=== PATIENT | female | born 1965 | race Caucasian/White ===

== ENCOUNTER 2019-10-12 14:54 | Outpatient (REF) | payer BC, SELFPAY ==
--- NOTE | 2019-10-12 13:15 | PAPFT_PTH ---
PATIENT: ARNEL ARAYA LOC: NCN #:[id number] AGE/SX: 54/F ROOM: RE10/12/[address]: Rhonda Pepe : 1965 BED: DIS: 10/12/2019 SPEC #: [id number] RECD: 10/12/19 18:44 STATUS: MAIRA REAbram #: [id number] ELOISA: 10/12/19 13:[address]: Rhonda Pepe DEPT: FORMERLY [facility], [facility] Cytology RECD BY: Radha Roque Tissues: 1 - CX/ENDOCX FOR PAP SMEARS Procedures: PAP THIN PREP/[facility] Screening HPV DNA PROBE Comments: [id number] (CHLAMYDIA/GC)
[2019-10-13 15:01] LABS: Chlamydia Result Negative (Negative)
[2019-10-16 13:51] LABS: GC Result Negative (Negative)
== END 2019-10-12 15:14 ==
LOC: NCHCN 14:54
PROVIDERS: PCP Nurse Practitioner; Visit Provider Nurse Practitioner
DX: Z00.00 Encounter for general adult medical examination without abnormal findings (principal); Z12.4 Encounter for screening for malignant neoplasm of cervix; Z11.51 Encounter for screening for human papillomavirus (HPV); Z11.3 Encounter for screening for infections with a predominantly sexual mode of transmission
CPT/HCPCS: 87491; 87591; 88142; 87624

== ENCOUNTER 2019-11-30 00:57 | Outpatient (CLI) | payer BC, SELFPAY ==
--- NOTE | 2019-11-30 12:28 | DI.MAMMO_ITS ---
EXAM: MAMMO SCREENING CLINICAL HISTORY: SCREENING, Z12.39 TECHNIQUE: Mammograms were interpreted according to the usual protocol including computer analysis w [employer] CAD system, tomosynthesis and C-view imaging. FINDINGS: The breasts are of moderate density with fairly symmetrical distribution of fibroglandular tissue. N o dominant mass or clumped microcalcification is identified in either breast. Current examination is compared with previous examinations including September 2015 and there is increased prominence of a fo david area of asymmetric density with a vaguely nodular appearance projected in the central superior po rtion of right breast on MLO view. Additional mammographic views of this area are requested to inclu de MLO spot compression view of the right breast. IMPRESSION: Additional mammographic views of the right breast requested as described above. Breast ultrasound may be indicated as well depending on the result of the additional mammographic views. Category 0. Br east density, category B. BI-RADS Cat 0 - Assessment Incomplete: Need additional imaging evaluation. Breast Density - Category B - Scattered areas of fibroglandular density
== END 2019-11-30 01:17 ==
PROVIDERS: PCP Nurse Practitioner; Visit Provider Nurse Practitioner
DX: Z12.31 Encounter for screening mammogram for malignant neoplasm of breast (principal); R92.8 Other abnormal and inconclusive findings on diagnostic imaging of breast
CPT/HCPCS: 77063; 77067

== ENCOUNTER 2019-12-07 01:28 | Outpatient (CLI) | payer BC, SELFPAY ==
--- NOTE | 2019-12-07 14:29 | DI.MAMMO_ITS ---
EXAM: MG MAMMO SCREEN CALL BACK UNI CLINICAL HISTORY: INCREASED PROMINENCE OF FOCAL AREA OF ASYMMETRIC DENSITY WITH NODULAR APPEARANCE I N CENTRAL SUPERIOR RT BREAST. TECHNIQUE: Spot compression MLO view with tomography was performed of the superior portion of the ri ght breast. COMPARISON: November, from [facility]. 2010 through 2014 from [facility]. FINDINGS: Breast Density - Category B - Scattered areas of fibroglandular density Spot-compression MLO view was performed with tomography for questioned nodular asymmetry. No persist ent abnormality is seen. Findings are consistent with overlying fibroglandular tissue. Masses/Architectural Distortion: None seen. Microcalcifications: No suspicious pleomorphic-type calcifications are seen. Skin Thickening/Nipple Retraction: None. Axilla: Unremarkable. IMPRESSION: 1. BI-RADS category 1, negative. No significant interval change with no specific features of maligna ncy noted. 2. Unless there is more urgent need, screening mammography is recommended, as per [employer] guidelines. BI-RADS Cat 1 - Negative Breast Density - Category B - Scattered areas of fibroglandular density A negative radiographic report should not delay biopsy if a dominant or clinically suspicious mass is present. Up to ten percent of cancers are not identified on mammography. A negative report may reinforce clinical impression. Adenosis and dense breasts may obscure an underlying neoplasm. False positive reports average 6 to 10%. Patient will receive a letter notifying them of these results.
== END 2019-12-07 01:48 ==
PROVIDERS: PCP Nurse Practitioner; Visit Provider Nurse Practitioner
DX: Z12.31 Encounter for screening mammogram for malignant neoplasm of breast (principal); R92.8 Other abnormal and inconclusive findings on diagnostic imaging of breast; N64.59 Other signs and symptoms in breast
CPT/HCPCS: 77063; 77067

== ENCOUNTER 2020-06-21 14:19 | Outpatient (REF) | payer BC, SELFPAY ==
[2020-06-26 11:01] LABS: SARS-CoV-2 RNA Undetected (Undetected); SARS-CoV-2 Specimen Source Nasopharynx
== END 2020-06-21 14:39 ==
LOC: NCHCN 14:19
PROVIDERS: PCP Nurse Practitioner; Visit Provider Nurse Practitioner Family
DX: Z11.59 Encounter for screening for other viral diseases (principal)
CPT/HCPCS: U0003

== ENCOUNTER 2020-09-22 18:41 | Outpatient (REF) | payer BC, SELFPAY ==
[2020-09-25 22:54] LABS: Patient Race White; SARS-CoV-2 RNA Undetected (Undetected); SARS-CoV-2 Specimen Source Nasal
== END 2020-09-22 19:01 ==
LOC: NCHCN 18:41
PROVIDERS: PCP Nurse Practitioner; Visit Provider Nurse Practitioner Family
DX: J02.9 Acute pharyngitis, unspecified (principal); R51.9 Headache, unspecified
CPT/HCPCS: U0003

== ENCOUNTER 2020-10-11 07:31 | Outpatient (CLI) | payer BC, SELFPAY ==
[2020-10-12 12:24] LABS: SARS-CoV-2 RNA Not Detected (NotDetected); SARS-CoV-2 RNA Source Nasal/Nares
== END 2020-10-11 07:51 ==
PROVIDERS: PCP Nurse Practitioner; Visit Provider Surgery
DX: Z11.59 Encounter for screening for other viral diseases (principal); Z01.818 Encounter for other preprocedural examination
CPT/HCPCS: U0003

== ENCOUNTER 2020-10-14 06:20 | Day surgery (SDC) | payer BC, SELFPAY ==
[2020-10-14 06:28] VITALS: BP 145/85; PULSE 67; RESP 16; TEMP 36.4; O2SAT 99
--- NOTE | 2020-10-14 07:20 | W.PM.DSUDISC ---
Discharge Plan Disposition Patient Disposition: HOME Condition: Good Discharge Details Reason For Visit: Colonoscopy Attending Provider: Regine Jenkins Primary Care Provider: Rhonda Pepe Discharge Instructions Additional Instructions: Findings: One tiny polyp was removed. My office will contact you with biopsy results. Follow up: If the polyp is adenomatous, plan for a colonoscopy in 5 years. Please call if you develop: fevers >101.5 Nausea or Vomiting Abdominal pain that is not transient DAY SURGERY UNIT POST COLONOSCOPY INSTRUCTIONS 1. Because there will be medication in your system for the next 24 hours, you may feel a little sleepy. Your coordination will be affected. Therefore: a. Do not drive or operate dangerous equipment for 24 hours. b. Do not drink alcohol beverages for 24 hours (not even beer). c. Plan to go home and rest for the day. 2. Generally there are no restrictions on your activity after a day or so has gone by, but you may feel a bit fatigued for a few days. 3 After you arrive home you may have a light meal and return to a normal diet as you can tolerate it without feeling sick to your stomach. 4. After surgery, you may feel pain or discomfort. This should be only transient, but if it persists please contact your doctor. 5. If there are any questions regarding the findings of your procedure, please feel free to contact your doctor. 6. If you are unable to contact your doctor with a problem, contact the hospital at [phone]. 7. Continue all your regular medications unless directed otherwise. I understand the above instructions and have no questions. Signature of Patient or Responsible Adult Escort Date/Time Name of Responsible Adult Escort Signature of Nurse Date/Time Activity:: Activity as Tolerated Diet:: As Tolerated Discharge Orders Discharge Orders: Discharge Order (Routine); Ordered 10/14/20 Ordered By: Regine Jenkins DS: Diagnosis Discharge Diagnosis (1) Colon polyp: Status: Acute
--- NOTE | 2020-10-14 07:21 | W.COLOREPORT ---
Date of service: 10/14/20 Time of Service: 08:05 Colonoscopy Report Date of procedure: 10/14/20 Pre-op diagnosis general: Screening Post-op diagnosis procedure note: other (Sigmoid polyp) Procedure: Colonoscopy with cold forceps polypectomy Surgeon: Regine Jenkins Anesthesia proc note operative: MAC Indications: This 55 year old woman presents for her first screening colonoscopy. She has no symptoms or FH colon cancer. Procedure Description: The patient was placed in the left Jones position. Propofol was titrated to sedation. Digital rectal examination revealed no abnormalities. The scope was advanced to the cecum without difficulty. The ileocecal valve and appendiceal orifice were clearly identified. The prep was good. The distal ileum was briefly intubated and appeared normal. The scope was slowly withdrawn over the course of greater than 6 minutes with no abnormalities seen in the ascending, transverse, descending colon. A diminuitive polyp was removed from the sigmoid colon with the cold forceps. The rectum was normal including on retroflexed view. The patient tolerated the procedure well and was stable to recovery. If the polyp is adenomatous, she will need colonoscopy in 5 years.
[2020-10-14] MEDS: Lactated Ringers 1,000 ML 80 ML IV (07:30)
--- NOTE | 2020-10-14 07:43 | BOWEL_PTH ---
PATIENT: ARNEL ARAYA LOC: [facility] U#:[id number] AGE/SX: 55/F ROOM: RE10/14/[address]: Regine Jenkins MD : 1965 BED: DIS: 10/14/2020 SPEC #: [id number] RECD: 10/14/20 12:49 STATUS: MAIRA REAbram #: [id number] ELOISA: 10/14/20 07:[address]: Regine Jenkins DEPT: Surgical Specimen RECD BY: Radha Roque ENTERED: 10/14/20 12:49 SP TYPE: Bowel OTHR DR: Rhonda Pepe Tissues: 1 - BIOPSY BOWEL Procedures: GROSS AND MICRO LEVEL 4 Comments: [id number] ([id number] [facility]#)
[2020-10-14 08:35] VITALS: BP 125/77; PULSE 59; RESP 16; TEMP 36.2; O2SAT 99
== END 2020-10-14 08:50 | disposition home or self-care (01) ==
PROVIDERS: PCP Nurse Practitioner; Visit Provider Surgery
PROC: 0DJD8ZZ Inspection of Lower Intestinal Tract, Via Natural or Artificial Opening Endoscopic (ICD-10-PCS; CPT 45378; principal; 2020-10-14 07:30)
DX: Z12.11 Encounter for screening for malignant neoplasm of colon (principal); K63.5 Polyp of colon; D12.5 Benign neoplasm of sigmoid colon
CPT/HCPCS: 45380; 88305; J2001